=== PATIENT | male | born 1985 | race Caucasian/White ===

== ENCOUNTER 2020-03-11 15:46 | Emergency (ER) | payer SELFPAY ==
[~2020-03-11] VITALS: Ht 175.3 cm; Wt 72.7 kg
[2020-03-11] MEDS ORDERED: fentaNYL PF VIAL 100 MCG/2 ML VIAL IV ONE (16:30)
[2020-03-11] MEDS ORDERED: ONDANSETRON PF 4 MG/2 ML VIAL. IV ONE (16:30)
--- NOTE | 2020-03-11 16:34 | RAD ---
Three-view right shoulder Internally and externally rotated views the right shoulder obtained as well as a Y view The humeral head projects anterior and inferior and medial to the glenoid. The visualized osseous structures appear grossly intact. IMPRESSION: Anterior dislocation of the right shoulder. Electronically signed by: Venu Treadwell III, MD (03/11/2020 4:31 PM) [id number]
--- NOTE | 2020-03-11 16:39 | PHYS DOC ---
Past Medical History Additional Past Medical Histor: Right shoulder dislocations (VASILIY ZAMORA APRN) Past Medical History: No Pertinent History (REBECCA NORMAN MD) Past Surgical History: No Surgical History (VASILIY ZAMORA APRN) Past Surgical History: No Surgical History (REBECCA NORMAN MD) Smoking Status: Current Every Day Smoker Alcohol Use: Occasionally (VASILIY ZAMORA APRN) Smoking Status: Current Every Day Smoker Alcohol Use: Occasionally (REBECCA NORMAN MD) RISKS/ALTERNATIVES Risks/Alternatives Risks and alternatives of this type of sedation and procedure discussed with: (VASILIY ZAMORA APRN) Risks/Alternatives Risks and alternatives of this type of sedation and procedure discussed with: RISK/ALTERNATIVES: Patient (REBECCA NORMAN MD) H & P ON CHART H & P H & P on chart and reviewed for co-morbid conditions and appropriate labs. (VASILIY ZAMORA APRN) H & P H & P on chart and reviewed for co-morbid conditions and appropriate labs. H&P ON CHART: Yes (REBECCA NORMAN MD) STATUS PREG STATUS ASSESSED: N/A (REBECCA NORMAN MD) MEDS/ALLERGIES REVIEWED Meds/Allergies Reviewed Medications and Allergies including time and route of recently administered narcotics and sedatives. (VASILIY ZAMORA APRN) Meds/Allergies Reviewed Medications and Allergies including time and route of recently administered narcotics and sedatives. MEDS/ALLERGIES REVIEWED: Yes (REBECCA NORMAN MD) ASA RATING ASA RATING: I (REBECCA NORMAN MD) AIRWAY ASSESSMENT Airway Assessment Airway patency, oral function limitations, presence of caps, crowns, dentures, partials, and ability to extend neck assessed. (VASILIY ZAMORA APRN) Airway Assessment Airway patency, oral function limitations, presence of caps, crowns, dentures, partials, and ability to extend neck assessed. AIRWAY ASSESSMENT: Yes (REBECCA NORMAN MD) MALLAMPATI SCORE MALLAMPATI SCORE: II (REBECCA NORMAN MD) PRE-SEDATION ASSESSMENT PRE-SEDATION ASSESSMENT: Yes (REBECCA NORMAN MD) General Adult EDM: Chief Complaint: SHOULDER INJURY HPI: HPI: Patient is a 34 year old male who presents to the emergency department with complaints of acute right shoulder pain and deformity. Patient reports a history of several previous right shoulder dislocations. Today he was reaching behind him for his dog when he felt his shoulder come out of place. He currently rates the pain in his right shoulder a 7 out of 10 on the pain scale, the pain does not radiate, he has not taken anything for relief of the pain. The pain increases if he tries to move his right shoulder. Patient denies any alleviating factors. (VASILIY ZAMORA APRN) Review of Systems: Review of Systems: Complete review of systems is negative unless otherwise documented in the HPI (VASILIY ZAMORA APRN) Heart Score: Risk Factors: Risk Factors: DM, Current or recent (<one month) smoker, HTN, HLP, family history of CAD, obesity. Risk Scores: Score 0 - 3: 2.5% MACE over next 6 weeks - Discharge Home Score 4 - 6: 20.3% MACE over next 6 weeks - Admit for Clinical Observation Score 7 - 10: 72.7% MACE over next 6 weeks - Early Invasive Strategies (VASILIY ZAMORA APRN) Current Medications: Current Medications Medications (Trade) Dose Ordered Sig/Godfrey Start Time Stop Time Status Last Admin Dose Admin Fentanyl Citrate (Fentanyl 2ml Vial) 50 mcg 1X ONCE 03/11/20 16:30 03/11/20 16:31 UNV 03/11/20 16:33 50 MCG Ondansetron HCl (Zofran) 4 mg 1X ONCE 03/11/20 16:30 03/11/20 16:31 UNV 03/11/20 16:32 4 MG (VASILIY ZAMORA APRN) Allergies: Allergies: Allergies Coded Allergies Type Severity Reaction Last Updated Verified No Known Drug Allergies 03/11/20 No (VASILIY ZAMORA APRN) Physical Exam: PE: Constitutional: Well developed, well nourished, no acute distress, non-toxic appearance. [] HENT: Normocephalic, atraumatic, bilateral external ears normal, nose normal. [] Eyes: PERRLA, EOMI, conjunctiva normal, no discharge. [] Neck: Normal range of motion, no stridor. [] Cardiovascular:Heart rate regular rhythm Lungs & Thorax: Respirations even and unlabored, no retractions, no respiratory distress Skin: Warm, dry, no erythema, no rash. [] Extremities: R shoulder, deformity concerning for anterior dislocation, 2+ radial pulse, sensation intact, no cyanosis, ROM limited due to injury Neurologic: Alert and oriented X 3, no focal deficits noted. [] Psychologic: Affect normal, judgement normal, mood normal. [] (VASILIY ZAMORA APRN) Current Patient Data: Vital Signs: Vital Signs Date Time Temp Pulse Resp B/P (MAP) Pulse Ox O2 Delivery O2 Flow Rate FiO2 03/11/20 16:33 18 99 Room Air 03/11/20 16:11 98.5 127 153/102 (119) 98.5 (VASILIY ZAMORA APRN) EKG: EKG: [] (VASILIY ZAMORA APRN) Radiology/Procedures: Radiology/Procedures: PROCEDURE: SHOULDER 2+V RIGHT Three-view right shoulder Internally and externally rotated views the right shoulder obtained as well as a Y view The humeral head projects anterior and inferior and medial to the glenoid. The visualized osseous structures appear grossly intact. IMPRESSION: Anterior dislocation of the right shoulder. PROCEDURE: SHOULDER 2+V RIGHT Examination: SHOULDER 2+V RIGHT History: Reason: reduction / Spl. Instructions: / History: Comparison/Correlation: 03/11/2020 right shoulder x-ray exam performed at 4:18 PM. Findings: 2 images of the right shoulder were obtained. Successful reduction of the right glenohumeral joint is evident. No definite displaced fracture identified. Cardiomegaly is unremarkable. Bony mineralization is adequate. Impression: Successful reduction of the right glenohumeral joint. [] (VASILIY ZAMORA APRN) Course & Med Decision Making: Course & Med Decision Making Pertinent Labs and Imaging studies reviewed. (See chart for details) [] (VASILIY ZAMORA APRN) Dragon Disclaimer: Dragon Disclaimer: This electronic medical record was generated, in whole or in part, using a voice recognition dictation system. (VASILIY ZAMORA APRN) Departure Departure Impression: Primary Impression: Dislocation of shoulder, right, closed Qualified Codes: S43.004A - Unspecified dislocation of right shoulder joint, initial encounter Disposition: 01 HOME, SELF-CARE Condition: STABLE Referrals: NO PCP (PCP) Patient Instructions: Shoulder Dislocation, [id number] Additional Instructions: Tylenol or ibuprofen as needed for pain. Wear the shoulder immobilizer until follow up appointment with orthopedics. Call Dr. Aguirre's office for appointment next week. Return to the ER if symptoms worsen. Justicifation of Admission Dx: Justifications for Admission: Justification of Admission Dx: N/A (VASILIY ZAMORA APRN) VASILIY ZAMORA APRN Mar 11, 2020 16:39 REBECCA NORMAN MD Mar 11, 2020 16:48
[2020-03-11] MEDS ORDERED: KETAMINE HCL IN NACL, ISO-OSM 50 MG/5 ML SYRINGE IV ONE (16:45)
[2020-03-11] MEDS ORDERED: IV NORMAL SALINE 1000ML BAG 1,000 ML IV ONE (16:45)
[2020-03-11] MEDS ORDERED: PROPOFOL 10 MG/ML (20ML) VIAL. IV ONE (16:45)
[2020-03-11] MEDS ORDERED: MIDAZOLAM HCL/PF 5 MG/5 ML VIAL. ONE (17:57)
[2020-03-11 18:03] VITALS: BP 146/95
--- NOTE | 2020-03-11 18:14 | RAD ---
Examination: SHOULDER 2+V RIGHT History: Reason: reduction / Spl. Instructions: / History: Comparison/Correlation: 03/11/2020 right shoulder x-ray exam performed at 4:18 PM. Findings: 2 images of the right shoulder were obtained. Successful reduction of the right glenohumeral joint is evident. No definite displaced fracture identified. Cardiomegaly is unremarkable. Bony mineralization is adequate. Impression: Successful reduction of the right glenohumeral joint. Electronically signed by: Brandon Lubin MD (03/11/2020 6:11 PM) [facility]
[2020-03-11] MEDS ORDERED: MIDAZOLAM HCL/PF 5 MG/5 ML VIAL. IV ONE (19:15)
[2020-03-11 20:30] VITALS: BP 130/78
== END 2020-03-11 20:32 | disposition home or self-care (01) ==
LOC: ER 15:46
DX: S43.084A Other dislocation of right shoulder joint, initial encounter (principal); F17.200 Nicotine dependence, unspecified, uncomplicated; X50.9XXA Other and unspecified overexertion or strenuous movements or postures, initial encounter; Y93.89 Activity, other specified; Y92.89 Other specified places as the place of occurrence of the external cause; Y99.8 Other external cause status
CPT/HCPCS: 23650; 73030; 96374; 99285; J2250; J2405; J2704; J3010; J7030